=== PATIENT | male | born 1990 | race Caucasian/White ===

== ENCOUNTER 2024-12-15 15:53 | Outpatient (AMB) | payer BC, SELFPAY ==
--- NOTE | 2024-12-15 15:56 | A.OFFPC_ITS ---
Vital Signs 12/15/24 16:04 Height 6 ft 4.5 in Weight 235 lb 6 oz BMI 28.3 BP 125/59 L Blood Pressure Location Rt brachial Position Sitting Respiration 20 Pulse 70 Pulse Source Monitor Temp 97.8 F Temp Source Oral Pulse Oximetry (%) 96 Oxygen Delivery Method Room Air Intake Visit Reasons: NEW PATIENT- HEADACHES Intake Note: new patient- headaches Technical Proposal Writer Required: No Accompanied by: Self / Same As Patient Allergies No Known Allergies Allergy (Verified 12/15/24 16:01) Tobacco use date assessed: 12/15/24 Dental Screening Dental Screen Date: 12/15/24 Did you have a dental visit in the last 12 months?: Yes Did you have a dental problem in the last 6 months where you did not have access to dental care?: No Was dental information given to patient?: Patient has dentist HPI HPI Comments History of Present Illness Details History of Present Illness The patient is a 34-year-old male presenting for a general check-up to [facility], an appointment initiated by his following a recent episode of diarrhea. Diarrhea: The patient reports a month to five-week history of very runny, loose stools, occurring about four times a day, often immediately after eating. This episode has since resolved, and his bowel movements have returned to his normal of once or twice daily. Fatigue: The patient reports feeling always exhausted and not like himself. He does not feel refreshed upon waking and often wakes up in pain. He is unsure if the fatigue is from work, home renovations, and family life or an underlying issue. Low Back Pain: The patient experiences significant lower back pain, for which he sees a chiropractor every other week for relief. He reports morning stiffness that improves throughout the day and with stretching. He notes muscular tightness predominantly on his right side. He has a history of mild scoliosis confirmed by X-ray. Severe flare-ups, which occur a couple of times a year, can cause radiating pain (sciatica) that impairs his ability to walk, though these are less frequent with regular social worker palliative care. Surgical History: - No surgical history reported. - Prior dental work. Medications: - The patient is not taking any medicati ons. 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 - Family Status: for eight years with three children (one girl, two boys). - Substance Use: Denies smoking or use o f hard drugs. - Alcohol Use: Reports drinking a couple of times a week, typically one or two drinks per occasion. - He occasionally has more than his usua l amount, approximately once every couple of months. - Activities: He is currently renovating his house. - Exercise: Performs stretching sessions before his work shift. Family History: - Mother: Has a history of low blood pre ssure and unspecified heart issues. - Father: No known medical issues. Diagnostic Results: - Labs: Reports having had blood work do ne a couple of years ago, results not specified. - Imaging: Prior X-rays showed mild scol iosis. Past Medical History - Mild scoliosis per prior imaging. - History of sciatica associated with ba ck pain flare-ups. Health Maintenance - Last primary care visit was [facility] two years ago. - He is not yet of age for a screening c olonoscopy. - Receives regular social worker palliative care for back pain. 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 1. Little interest or pleasure in doing things: several days 2. Feeling down, depressed, or hopeless: several days 3. Trouble falling or staying asleep, or sleeping too much: not at all 4. Feeling tired or having little energy: more than half the days 5. Poor appetite or overeating: not at all 6. Feeling bad about yourself - or that you are a failure or have let yourself or your family down: not at all 7. Trouble concentrating on things, such as reading the newspaper or watching television: several days 8. Moving or speaking so slowly that other people could have noticed. Or the opposite - being so fidgety or restless that you have been moving around a lot more than usual: not at all 9. Thoughts that you would be better off or of hurting yourself in some way: not at all Total score: 5 Depression Screening Interpretation: Negative Depression Screening Done: Yes [id number] - PHQ-9 Billing: Yes Source: Developed by Drs. Beny Iraheta, Patria Jones, Neeraj Orta and colleagues, with an educational shereen from [employer]. Thrive Questionnaire Date Thrive assessed: 12/15/24 I am a: Patient What is your living situation today?: I have a steady place to live Within the past 12 months, did the food you bought not last and you didn't have the money to get more?: Sometimes True Within the past 12 months, did you worry whether your food would run out before you got money to buy more?: Sometimes True Do you have trouble paying for medicines?: No Do you have trouble getting transportation to medical appointments?: No Do you have trouble paying your heating and electricity bill?: No Do you have trouble taking care of your child, family member or friend?: No Do you have trouble with day-to-day activities such as bathing, preparing meals, shopping, managing finances, etc.?: No Are you currently unemployed and looking for a job?: No Are you interested in more education?: No Please select the resources that you would like help with: None Currently or been in a relationship where the following occur: No concerns reported THRIVE Score: 2 AUDIT C Alcohol Use Questionnaire (AUDIT-C) 1. How often do you have a drink containing alcohol?: 2-4 times a month 2. How many drinks containing alcohol do you have on a typical day when you are drinking?: 1 or 2 3. How often do you have six or more drinks on one occasion?: Less than monthly Total Score: 3 DAVID-7 AMB Questionnaire DAVID-7 Date DAVID - 7 assessed: 12/15/24 Feeling nervous, anxious, or on edge: 0 = Not at all Not being able to stop or control worryin = Not at all Worrying too much about different things: 1 = Several days Trouble relaxin = Not at all Being so restless that it is hard to sit still: 0 = Not at all Becoming easily annoyed or irritable: 1 = Several days Feeling afraid as if something awful might happen: 0 = Not at all Total DAVID-7 score (0-4 normal; 5-9 mild; 10-14 moderate; 15-21 severe): 2 Source: Developed by Drs. Beny Iraheta, Patria Jones, Neeraj Orta and colleagues, with an educational shereen from [employer]. DAVID-7 Assessment Billing DAVID-7 Assessment Tool: DAVID-7 Assessment 68193 Review of Systems Narrative Review of Systems - Constitutional: Reports fatigue and feeling unrested upon waking. - Gastrointestinal: Reports recent history of resolved loose stools. - Denies abdominal swelling. - Musculoskeletal: Reports lower back pain, morning stiffness, and waking up in pain. - Denies swelling of the lower legs. - Respiratory: Reports snoring. - Denies gasping for air at night. 10-point ROS reviewed and negative except as noted in HPI Physical exam (Primary Care) Vital Signs: Last Vital Signs Temp 97.8 F 12/15/24 16:04 Pulse 70 12/15/24 16:04 Resp 20 12/15/24 16:04 BP 125/59 L 12/15/24 16:04 Pulse Ox 96 12/15/24 16:04 Oxygen Delivery Method Room Air 12/15/24 16:04 BMI result Body Mass Index 28.3 Tobacco/Smoking Status: Tobacco use Status Tobacco use date assessed 12/15/24 12/15/24 16:06 Patient Tobacco Use Status Never used Tobacco 12/15/24 16:06 e-Cigarette/Vaping Use Never Used 12/15/24 16:06 PHQ-9: PHQ-9 Score PHQ-9: Total score 5 12/15/24 15:58 Depression Screening Interpretation: Negative Thrive Assessment: Date of Thrive Assessment Date Thrive assessed 12/15/24 12/15/24 15:58 Currently or been in a relationship where the following occur: No concerns reported Narrative Physical Exam General: Well-appearing, in no acute distress. Vital signs: Within normal limits. HEENT: Normocephalic, atraumatic. PERRLA, EOMI. Conjunctiva clear, sclera anicteric. Oropharynx clear, mucous membranes moist. TMs intact bilaterally. Neck: Supple, no lymphadenopathy, no thyromegaly, no JVD or carotid bruits. Cardiovascular: RRR, normal S1/S2, no murmurs, rubs, or gallops. Peripheral pulses 2+ and symmetric. No edema. Respiratory: Lungs clear to auscultation bilaterally, no wheezes, rales, or rhonchi. Normal effort. Abdomen: Soft, non-tender, non-distended. Normoactive bowel sounds. No hepatosplenomegaly, no masses. MSK: Full range of motion, no joint swelling or deformity. Normal gait. Reports lower back pain, particularly on the right side, with a history of mild scoliosis. Pain can occasionally lead to sciatica. Skin: Warm, dry, intact. No rashes, lesions, or pallor. Neuro: Alert and oriented x3. Cranial nerves II-XII intact. Strength 5/5 throughout. Sensation intact. Reflexes 2+ symmetric. Normal coordination and gait. Psych: Appropriate mood and affect. Normal judgment and insight. Reports feeling exhausted and not refreshed upon waking, possibly related to back pain and lifestyle factors. Coding Level of Care Code New Pt Level 4 (74939) Diagnoses Acute diarrhea R19.7 Low back pain M54.50 Fatigue R53.83 Additional Codes DAVID-7 Assessment Billing - DAVID-7 Assessment Tool: DAVID-7 Assessment 93757 ([id number]) PHQ-9 - 15067 - PHQ-9 Billing: Yes ([id number]) Assessment & Plan Assessment & Plan (1) Acute diarrhea: Code(s): R19.7 - Diarrhea, unspecified Category: Medical (2) Low back pain: Code(s): M54.50 - Low back pain, unspecified Category: Medical (3) Fatigue: Code(s): R53.83 - Other fatigue Category: Medical Plan Consent The patient provided verbal consent to proceed with a physical examination and comprehensive blood work. He also agreed to a follow-up appointment in two weeks to discuss the results. Patient was informed and verbally consented to the use of an ambient scribe for clinic note documentation during this visit. Plan 1. General Medical Examination - To investigate the patient's fatigue, a comprehensive lab panel will be ordered, including a CBC, CMP, electrolytes, calcium, magnesium, hemoglobin A1c, lipid panel, thyroid studies, B12, folate, and vitamin D. - The patient will follow up in two weeks to review the results and discuss further management. 2. Diarrhea - The patient's recent episode of prolonged loose stools was noted. - As the condition has resolved spontaneously, no further workup or treatment is indicated at this time. 3. Low Back Pain - The patient reports his chronic low back pain is helped by regular social worker palliative care, which he should continue. - A low-dose muscle relaxant was offered for nighttime use to help with muscle tightness if needed. - The patient was advised to follow up if his back pain worsens. Discussion Notes I discussed with the patient that his primary reason for the visit is to establish care and undergo a general check-up, prompted by his 's concern over a now-resolved episode of diarrhea. We addressed his main complaints of fatigue and chronic lower back pain. To investigate the fatigue, I explained the rationale for ordering a comprehensive blood panel, which will screen for common causes such as anemia, thyroid disorders, and vitamin deficiencies. Regarding his back pain, we acknowledged the benefit he receives from his current social worker palliative care and discussed the option of adding a low-dose muscle relaxant at night for added relief if his symptoms warrant it. The plan is to obtain these labs today and have him return in two weeks to review the results and formulate the next steps in his care. Patient Instructions - Proceed to have your blood drawn today for the ordered tests. - Schedule a follow-up appointment in two weeks to discuss your lab results. - Continue with your regular chiropractor visits for your back pain. - If you feel you need extra help with muscle tightness, let us know, and we can prescribe a low-dose muscle relaxant for you to take at night. - Return sooner if your back pain gets much worse. Medical Decision Making The patient is a 34-year-old male establishing care, presenting for a wellness visit with chief complaints of fatigue and a recently resolved episode of prolonged diarrhea. The history of loose stools lasting several weeks which has now resolved without intervention is reassuring, and a watchful waiting approach is appropriate given the absence of current alarm symptoms. The primary clinical concern is the patient's significant fatigue. The differential diagnosis for his fatigue is broad, including lifestyle factors such as stress and overwork, as well as organic causes like anemia, hypothyroidism, vitamin deficiencies (B12, folate, D), and metabolic abnormalities. Therefore, ordering a comprehensive laboratory panel including a CBC, CMP, HbA1c, lipids, TSH, B12, folate, and vitamin D is a logical first step to investigate these possibilities. His chronic low back pain is consistent with a musculoskeletal origin, supported by his history of mild scoliosis and the beneficial response to social worker palliative care. Offering a low-dose muscle relaxant is a conservative option for additional symptomatic relief as needed. The plan is to review lab results in two weeks to guide further management and address any identified abnormalities. Total time spent caring for the patient today was 30 minutes. This includes time spent before the visit reviewing the chart, time spent documenting, and time spent reviewing laboratory results, diagnostic imaging, medications, performing a medically necessary evaluation, counseling on diagnoses, care coordination. Orders: Orders Complete Blood Count Auto Diff Today Z13.9 - Encounter for screening, unspecified Comprehensive Met. Panel Today Z13.9 - Encounter for screening, unspecified Hepatitis B Surface Antibody Today Z13.9 - Encounter for screening, unspecified Hepatitis B Surface Antigen Today Z13.9 - Encounter for screening, unspecified HIV Ab/Ag Today Z13.9 - Encounter for screening, unspecified Lipid Panel Today Z13.9 - Encounter for screening, unspecified Vitamin B12 and Folate Today Z13.9 - Encounter for screening, unspecified Vitamin D 1,25 dihydroxy Today Z13.9 - Encounter for screening, unspecified Hemoglobin A1c Today Z13.9 - Encounter for screening, unspecified Hepatitis C Antibody Today Z13.9 - Encounter for screening, unspecified Magnesium Today Z13.9 - Encounter for screening, unspecified UA CC w/rflx Micro + Cult Today Z13.9 - Encounter for screening, unspecified TSH reflex Free T4 Today Z13.9 - Encounter for screening, unspecified
[2024-12-15 16:04] VITALS: BP 125/59; PULSE 70; RESP 20; TEMP 36.6; O2SAT 96; BMI 28.3
--- OUTSIDE RECORDS SUMMARY | 2024-12-15 18:15 | XMS_ITS | Clinical Summary ---
Author Organization [facility] it Address [address] [place] [address] Care Team Providers Care Cut Out Worker Name Role Phone Unavailable Primary Care Provider Unavailabl e Social History Tobacco Use Types Packs/Day Years Used Date Smoking Tobacco: Never Assessed Sex and Gender Information Value Date Recorded Sex Assigned at Not on file Legal Sex Male 11:55 AM EST Gender Identity Not on file Sexual Orientation Not on file Obstetrics History Plan of Treatment Health Maintenance Due Date Last Done Comments Hepatitis B Vaccines (1 of 3 - 19+ 3-dose series) 2009 HPV Vaccines (1 - 3-dose SCD M series) 2017 Depression Screening 02/17/2024 COVID-19 Vaccine (1 - 2023-2 5 season) 2024 Influenza Vaccine (#1) 2024 DTaP,Tdap,and Td Vaccines (2 - Td or Tdap) 06/23/2030 06/23/2020 RSV Immunization Adult Patie nts (1 - 1-dose 75+ series) 2065 HIB Vaccines Aged Out No longer eligi ble based on patient's age to complete this topic Hepatitis A Vaccines Aged Out No long er eligible based on patient's age to complete this topic IPV Vaccines Aged Out No longer eligi ble based on patient's age to complete this topic MMR Vaccines Aged Out No longer eligi ble based on patient's age to complete this topic Meningococcal ACWY Vaccine Aged Out N o longer eligible based on patient's age to complete this topic Meningococcal B Vaccine Aged Out No l onger eligible based on patient's age to complete this topic Pneumococcal Vaccine: Pediat rics (0 to 5 Years) and At-Risk Patients (6 to 49 Years) Aged Out No longer eligi ble based on patient's age to complete this topic RSV Immunization Patients Un tyra 20 months Aged Out No longer eligible b ased on patient's age to complete this topic Varicella Vaccines Aged Out No longer eligible based on patient's age to complete this topic
--- OUTSIDE RECORDS SUMMARY | 2024-12-15 18:15 | XMS_ITS | Clinical Summary ---
Author Organization [facility] Address [address] [place] [address] Care Team Providers Care Tool Programmer Name Role Phone Unavailable Primary Care Provider Unavailabl e Medications No known medications Active Problems Problem Noted Date Diagnosed Date Pneumomediastinum 06/23/2020 Immunizations Name Administration Dates Next Due Adacel (Tdap) 06/23/2020 Social History Tobacco Use Types Packs/Day Years Used Date Smoking Tobacco: Never Assessed Sex and Gender Information Value Date Recorded Sex Assigned at Male 06/23/2020 5:57 PM EDT Gender Identity Not on file Sexual Orientation Not on file Job Start Date Occupation Industry Not on file Not on file Not on file Last Filed Vital Signs Vital Sign Reading Time Taken Comments Blood Pressure 114/72 06/24/2020 3:12 PM EDT Pulse 70 06/24/2020 3:12 PM EDT Temperature 36.4 C (97.5 F) 06/24/2020 3:12 PM EDT Respiratory Rate 18 06/24/2020 3:12 PM EDT Oxygen Saturation 99% 06/24/2020 3:12 PM EDT Inhaled Oxygen Concentration - - Weight - - Height - - Body Mass Index - - Plan of Treatment Health Maintenance Due Date Last Done Comments Hepatitis B Vaccines (1 of 3 - 3-dose series) 1990 Hepatitis C Screening 1990 COVID-19 Vaccine (#1) 01/21/1991 Depression Screening 2002 Preventative Health Evaluation 2008 Influenza Vaccine (#1) 2024 DTap / Tdap / Td (2 - Td or Tdap) 06/23/2030 021 Pneumococcal Vaccine Aged Out No long er eligible based on patient's age to complete this topic RSV Ped < 20 months Aged Out No longe r eligible based on patient's age to complete this topic Advance Directives For more information, please contact: [phone] Latest Code Status on File Code Status Date Activated Date Inactivated Comments Full Code 06/23/2020 9:38 PM 06/24/2020 11:59 PM
== END 2024-12-15 16:24 | disposition home or self-care (01) ==
LOC: HO.HMCFMS 15:53
PROVIDERS: PCP Student in an Organized Health Care Education/Training Program; Visit Provider Student in an Organized Health Care Education/Training Program
DX: R19.7 Diarrhea, unspecified (principal); M54.50 Low back pain, unspecified; R53.83 Other fatigue

== ENCOUNTER → 2024-12-15 15:53 | Outpatient (BNVA) | payer BC, SELFPAY | PROVIDERS: PCP Student in an Organized Health Care Education/Training Program; Visit Provider Student in an Organized Health Care Education/Training Program | DX: Z00.00 Encounter for general adult medical examination without abnormal findings (principal); R53.83 Other fatigue; R51.9 Headache, unspecified; M54.50 Low back pain, unspecified; R19.7 Diarrhea, unspecified | CPT/HCPCS: 96127 ==

== ENCOUNTER 2024-12-19 15:42 | Outpatient (REF) | payer BC, SELFPAY ==
--- OUTSIDE RECORDS SUMMARY | 2024-12-19 16:53 | XMS_ITS | Clinical Summary ---
Author Organization [facility] Address [address] [place] [address] Care Team Providers Care Instrumentation Engineering Technician Name Role Phone Unavailable Primary Care Provider [...] Advance Directives For more information, please contact: [phone] Latest Code Status on File Code Status Date Activated Date Inactivated Comments Full Code 06/23/2020 9:38 PM 06/24/2020 11:59 PM
--- OUTSIDE RECORDS SUMMARY | 2024-12-19 16:53 | XMS_ITS | Clinical Summary ---
Author Organization [facility] it Address [address] [place] [address] Care Team Providers Care Flight Simulator Teacher Name Role Phone Unavailable Primary Care Provider [...]
[2024-12-19 18:07] LABS: Appearance Urine Clear; Glucose Urine UA Negative (Negative); PH 5.5 (5.0-9.0); Specific Gravity - Urine 1.020 (1.005-1.025); UMIC TRIGGER UACC YES
[2024-12-19 18:14] LABS: MANUAL DIFF FLAG NO
[2024-12-19 18:40] LABS: Hematocrit 40.4 % (42.0-52.0); Hemoglobin 13.5 g/dl (14.0-18.0); Imm Gran Abs Auto 0.01 X10*3/uL (0.00-0.03); Imm Gran Pct Auto 0.2 % (0.0-0.4); Lymphocytes Absolute Auto 1.6 X10*3/uL (1.2-4.9); Mean Corpuscular HGB Conc 33.4 g/dl (31.0-36.0); Mean Corpuscular Hemoglobin 26.6 pg (27.0-33.0); Mean Corpuscular Volume 79.5 fL (80.0-98.0); NRBC Abs Auto 0.000 X10*3/uL (0.0-0.012); NRBC Pct Auto 0.0 /100WBC (0.0-0.2); Platelet Count 174 X10*3/uL (160-400); Red Blood Count 5.08 X10*6/uL (4.60-5.80); White Blood Count 4.5 X10*3/uL (4.8-10.8)
[2024-12-19 18:52] LABS: Alanine Aminotransferase 31 U/L (0-40); Albumin Level 4.9 g/dL (3.5-5.0); Alkaline Phosphatase 66 U/L (39-117); Anion Gap 11 (12-20); Aspartate Amino Transferase 39 U/L (5-37); Blood Urea Nitrogen 16 mg/dL (9-16); Calcium 9.4 mg/dL (8.4-10.2); Carbon Dioxide 29 mmol/L (22-29); Chloride 103 mmol/L (96-108); Cholesterol 207 mg/dL (<200); Estimated Glomerular Filt Rate > 60; HDL Cholesterol 52 mg/dL (>40); Magnesium 2.2 mg/dL (1.6-2.6); Potassium 4.1 mmol/L (3.3-5.1); Sodium 139 mmol/L (135-145); Total Protein 7.7 g/dL (6.5-8.0); Triglycerides 99 mg/dL (<150)
[2024-12-19 19:10] LABS: Folate 8.9 ng/mL (> or = 4.0); Vitamin B12 311 pg/mL (200-900)
[2024-12-20 06:58] LABS: HBS Num1 27.61 mIU/mL (0-7.99); HBsAGNum1 0.38 S/CO (0.00-0.99); HIV Num 1 0.05 S/CO (0.00-0.99); Hepatitis B Surface Antigen Negative (Negative); ~HepC Num1 0.09 S/CO (0.00-0.79); ~Hepatitis B Surface Antibody REACTIVE (Nonreactive); ~Hepatitis C Antibody Nonreactive (Nonreactive)
[2024-12-23 10:38] LABS: VITAMIN D (1,25 OH) D3 69 pg/mL; Vit D (1,25-Dihydroxy) Total 69 pg/mL (18-72); Vitamin D (1,25 OH) D2 <8 pg/mL
== END 2024-12-19 15:43 | disposition home or self-care (01) ==
LOC: HO.HKASLDS 15:42
PROVIDERS: PCP Student in an Organized Health Care Education/Training Program; Visit Provider Student in an Organized Health Care Education/Training Program
DX: Z13.1 Encounter for screening for diabetes mellitus (principal); Z13.6 Encounter for screening for cardiovascular disorders; Z13.89 Encounter for screening for other disorder; Z13.29 Encounter for screening for other suspected endocrine disorder
CPT/HCPCS: 36415; 80053; 80061; 81001; 82607; 82652; 82746; 83036; 83735; 84443; 85025; 86706; 86803; 87340; 87389

== ENCOUNTER 2024-12-30 16:08 | Outpatient (AMB) | payer BC, SELFPAY ==
--- NOTE | 2024-12-30 16:24 | A.OFFPC_ITS ---
Vital Signs 12/30/24 16:25 Height 6 ft 4.5 in Weight 236 lb 4 oz BMI 28.4 BP 133/78 Blood Pressure Location Rt brachial Position Sitting Respiration 16 Pulse 74 Pulse Source Pulse Oximeter Temp 97.5 F Temp Source Oral Pulse Oximetry (%) 97 Oxygen Delivery Method Room Air Intake Visit Reasons: 2 wk - lab review Allergies No Known Allergies Allergy (Verified 12/30/24 16:25) Tobacco use date assessed: 12/15/24 Dental Screening Dental Screen Date: 12/15/24 HPI HPI Comments History of Present Illness Details History of Present Illness The patient is a 34-year-old male presenting for review of laboratory results. Anemia: Recent lab results indicate low hemoglobin, hematocrit, and MCV, which are slightly below the normal range. Hypercholesterolemia: The patient's recent lab results show a total cholesterol of 207 mg/dL and an LDL cholesterol of 136 mg/dL. His HDL cholesterol is 52 mg/dL. The patient reports eating a lot of cheese, which may be contributing to his elevated cholesterol levels. Vitamin B12 deficiency: The patient's vitamin B12 level is on the lower end of normal at 311 pg/mL, with a cutoff of 200 pg/mL. Microscopic hematuria: Urinalysis revealed a trace amount of microscopic blood. No red blood cells were noted in the urine. Social History: - Nutrition: The patient reports consumi ng a lot of cheese. Diagnostic Results: - White Blood Cells: Normal. - Hemoglobin/Hematocrit/MCV: Slightly be low normal. - Comprehensive Metabolic Panel: Sodium, potassium, chloride, liver, and kidney function are within normal limits. - Hemoglobin A1c: Normal. - Lipid Panel: Total cholesterol is 207 mg/dL, LDL cholesterol is 136 mg/dL, and HDL cholesterol is 52 mg/dL. - Vitamin B12: 311 pg/mL. - Vitamin D: Normal. - Folate: Normal. - Thyroid function tests: Normal. - Urinalysis: Positive for a trace amoun t of microscopic blood; no red blood cells noted. - Serology: Negative for Hepatitis B, He patitis C, and HIV. Past Medical History Health Maintenance - Dietary counseling was provided regard ing increasing iron-rich foods, such as broccoli, liver, and beans, and reducing cholesterol-rich foods like cheese and eggs. - Discussed supplementation with over-th e-counter vitamin B12 or a multivitamin with iron. - A follow-up visit is recommended in 6 months to recheck lipid levels, CBC, and urinalysis. - The patient was screened for Hepatitis B, Hepatitis C, and HIV, with negative results. 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 Current occupational exposures/hazards: Yes Cognitive needs: No Hearing needs: No Vision needs: No Questionnaire Thrive Questionnaire Date Thrive assessed: 12/15/24 I am a: Patient What is your living situation today?: I have a steady place to live Within the past 12 months, did the food you bought not last and you didn't have the money to get more?: Sometimes True Within the past 12 months, did you worry whether your food would run out before you got money to buy more?: Sometimes True Do you have trouble paying for medicines?: No Do you have trouble getting transportation to medical appointments?: No Do you have trouble paying your heating and electricity bill?: No Do you have trouble taking care of your child, family member or friend?: No Do you have trouble with day-to-day activities such as bathing, preparing meals, shopping, managing finances, etc.?: No Are you currently unemployed and looking for a job?: No Are you interested in more education?: No Please select the resources that you would like help with: None Currently or been in a relationship where the following occur: No concerns reported THRIVE Score: 2 DAVID-7 AMB Questionnaire DAVID-7 Date DAVID - 7 assessed: 12/15/24 Source: Developed by Drs. Beny Iraheta, Patria Jones, Neeraj Orta and colleagues, with an educational shereen from [employer] Review of Systems Narrative Review of Systems 10-point ROS reviewed and negative except as noted in HPI Physical exam (Primary Care) Vital Signs: Last Vital Signs Temp 97.5 F 12/30/24 16:25 Pulse 74 12/30/24 16:25 Resp 16 12/30/24 16:25 BP 133/78 12/30/24 16:25 Pulse Ox 97 12/30/24 16:25 Oxygen Delivery Method Room Air 12/30/24 16:25 BMI result Body Mass Index 28.4 Tobacco/Smoking Status: Tobacco use Status Tobacco use date assessed 12/15/24 12/30/24 16:24 Patient Tobacco Use Status Never used Tobacco 12/30/24 16:24 e-Cigarette/Vaping Use Never Used 12/30/24 16:24 Thrive Assessment: Date of Thrive Assessment Date Thrive assessed 12/15/24 12/30/24 16:24 Currently or been in a relationship where the following occur: No concerns reported Narrative Physical Exam General: Well-appearing, in no acute distress. Vital signs: Within normal limits. HEENT: Normocephalic, atraumatic. PERRLA, EOMI. Conjunctiva clear, sclera anicteric. Oropharynx clear, mucous membranes moist. TMs intact bilaterally. Neck: Supple, no lymphadenopathy, no thyromegaly, no JVD or carotid bruits. Cardiovascular: RRR, normal S1/S2, no murmurs, rubs, or gallops. Peripheral pulses 2+ and symmetric. No edema. Respiratory: Lungs clear to auscultation bilaterally, no wheezes, rales, or rhonchi. Normal effort. Abdomen: Soft, non-tender, non-distended. Normoactive bowel sounds. No hepatosplenomegaly, no masses. MSK: Full range of motion, no joint swelling or deformity. Normal gait. Skin: Warm, dry, intact. No rashes, lesions, or pallor. Neuro: Alert and oriented x3. Cranial nerves II-XII intact. Strength 5/5 throughout. Sensation intact. Reflexes 2+ symmetric. Normal coordination and gait. Psych: Appropriate mood and affect. Normal judgment and insight. Coding Level of Care Code Est Pt Level 3 (66854) Diagnoses Iron deficiency anemia D50.9 Hypercholesterolemia E78.00 Vitamin B12 deficiency E53.8 Microscopic hematuria R31.29 Assessment & Plan Assessment & Plan (1) Iron deficiency anemia: Code(s): D50.9 - Iron deficiency anemia, unspecified Category: Medical (2) Hypercholesterolemia: Code(s): E78.00 - Pure hypercholesterolemia, unspecified Category: Medical (3) Vitamin B12 deficiency: Code(s): E53.8 - Deficiency of other specified B group vitamins Category: Medical (4) Microscopic hematuria: Code(s): R31.29 - Other microscopic hematuria Plan Consent Patient was informed and verbally consented to the use of an ambient scribe for clinic note documentation during this visit. Plan 1. Anemia - To address the slightly low hemoglobin, the patient was advised to increase dietary intake of iron-rich foods like broccoli, liver, and beans. - A prescription for iron supplementation was deferred to avoid potential side effects like constipation. - A multivitamin containing iron was suggested as an alternative. - A follow-up CBC will be performed in 6 months to monitor hemoglobin levels. 2. Hypercholesterolemia - Management will focus on lifestyle and dietary changes, specifically reducing the consumption of cheese and eggs. - Pharmacotherapy is not indicated at this time. - A follow-up lipid panel is scheduled for 6 months to assess response to d ietary modifications. 3. Vitamin B12 Deficiency - Given the low-normal vitamin B12 level, the patient has the option to take an [id number]-[id number] B12 supplement. - A multivitamin was also suggested as it would cover B12 needs. 4. Microscopic Hematuria - The trace amount of blood in the urine will be monitored. - A repeat urinalysis is planned for the 6-month follow-up visit. Discussion Notes I reviewed the patient's lab results with him. I explained that his hemoglobin was slightly low and recommended increasing his dietary iron intake with foods like broccoli and beans, rather than starting a supplement that could cause constipation. We discussed his elevated cholesterol, linking it to his diet, particularly his high intake of cheese. I advised that dietary changes alone should be sufficient to lower his cholesterol and that medication is not necessary at this point. I also noted his vitamin B12 was on the lower end of normal and suggested an optional [id number] supplement or a multivitamin. The trace blood in his urine was discussed, and I explained we would recheck this in six months. The patient's screenings for Hepatitis B, C, and HIV were negative. I emphasized that these are primarily issues that can be managed with lifestyle changes, and we agreed on a follow-up appointment in six months to repeat the labs. Patient Instructions - Reduce your intake of cholesterol-rich foods, such as cheese and eggs. - Increase your intake of iron-rich foods, including broccoli, liver, and beans. - You can take an nxuq-chc-uplaejo vitamin B12 supplement or a multivitamin that contains both iron and B12 if you wish. - Please return for a follow-up visit in six months to repeat your blood and urine tests. Medical Decision Making The patient is a 34-year-old male who presented for a review of his laboratory results. His results show mild hypercholesterolemia (Total Cholesterol 207, LDL 136) and a borderline anemia (low Hgb/Hct/MCV). Given his age and the mild natu re of these findings, the primary intervention is lifestyle modification rather than pharmacotherapy. The patient's reported high intake of cheese directly correlates with the elevated LDL. Dietary counseling to reduce cholesterol intake is the most appropriate first step. For the anemia, increasing dietary iron is preferable to initiating supplements, which carry a risk of constipation and are not warranted for such a mild deviation. The low-normal vitamin B12 and trace microscopic hematuria are minor findings that warrant monitoring but no immediate intervention. A repeat urinalysis, lipid panel, and CBC in six months will allow for assessment of the efficacy of dietary changes and ensure the hematuria is not a persistent or worsening issue. The overall assessment is that the patient is healthy, and his lab abnormalities are directly addressable through diet. Total Time Statement Total time spent caring for the patient today includes pre-visit chart review, documentation, review of laboratory and diagnostic imaging results, medication reconciliation, medically necessary evaluation, counseling on diagnoses, care coordination, ordering appropriate tests and medications, review of tests performed by other providers, reporting test results to the patient, and communication with other healthcare providers.
[2024-12-30 16:25] VITALS: BP 133/78; PULSE 74; RESP 16; TEMP 36.4; O2SAT 97; BMI 28.4
--- OUTSIDE RECORDS SUMMARY | 2024-12-31 00:52 | XMS_ITS | Clinical Summary ---
Author Organization [facility] it Address [address] [place] [address] Care Team Providers Care Dominatrix Name Role Phone Unavailable Primary Care Provider [...] Depression Screening 02/17/2024 COVID-19 Vaccine (1 - 2024-2 6 season) 2024 Influenza Vaccine (#1) 2024 DTaP,Tdap,and [...]
== END 2024-12-30 16:51 | disposition home or self-care (01) ==
LOC: HO.HMCFMS 16:09
PROVIDERS: PCP Student in an Organized Health Care Education/Training Program; Visit Provider Student in an Organized Health Care Education/Training Program
DX: D50.9 Iron deficiency anemia, unspecified (principal); E78.00 Pure hypercholesterolemia, unspecified; E53.8 Deficiency of other specified B group vitamins; R31.29 Other microscopic hematuria